=== PATIENT | female | born 1990 ===

== ENCOUNTER 2021-04-04 18:36 | Emergency (ER) | payer MEDICAID, OTHER ==
[~2021-04-04] VITALS: Ht 160 cm; Wt 107.5 kg
[2021-04-04 20:44] VITALS: BP 130/93
== END 2021-04-04 23:45 | disposition home or self-care (01) ==
LOC: ER 18:36
DX: N64.4 Mastodynia (principal); Z87.442 Personal history of urinary calculi; Z98.890 Other specified postprocedural states
CPT/HCPCS: 76642